=== PATIENT | male | born 1950 | race Caucasian/White ===

== ENCOUNTER 2016-11-11 11:09 | Emergency (ER) | payer SELFPAY ==
[~2016-11-11] VITALS: Ht 190.5 cm; Wt 117.9 kg
[2016-11-11 11:34] VITALS: BP 128/87
== END 2016-11-11 12:45 | disposition home or self-care (01) ==
LOC: ER 11:09
DX: B83.9 Helminthiasis, unspecified (principal); F17.210 Nicotine dependence, cigarettes, uncomplicated